=== PATIENT | male | born 1955 | race Caucasian/White ===

== ENCOUNTER 2020-05-14 16:24 | Emergency (ER) | payer OTHER ==
[~2020-05-14] VITALS: Ht 170.2 cm; Wt 68.0 kg
[2020-05-14 16:30] VITALS: Ht 170.2 cm; Wt 68.0 kg
[2020-05-14 18:05] VITALS: BP 153/70
== END 2020-05-14 18:05 | disposition home or self-care (01) ==
LOC: ED 16:24
DX: R42 Dizziness and giddiness (principal); I10 Essential (primary) hypertension; E11.9 Type 2 diabetes mellitus without complications; R11.2 Nausea with vomiting, unspecified; R51.9 Headache, unspecified; Z95.0 Presence of cardiac pacemaker
CPT/HCPCS: 82962; J8597